=== PATIENT | female | born 1980 | race Asian ===

== ENCOUNTER 2016-09-08 16:33 | Emergency (ER) | payer OTHER ==
[~2016-09-08] VITALS: Ht 160 cm; Wt 61.3 kg
[2016-09-08 16:57] LABS: HEMATOCRIT 36.8 % (36.0-46.0); MCH 27.4 PG (29.0-34.0); MCHC 33.7 G/DL (30.0-36.0); MCV 81.2 FL (83-99); MEAN PLAT.VOLUME 9.2 uM^3 (9.5-12.4); PLATELET COUNT 295 K/uL (156-360); RBC DIS.WIDTH-CV 13.6 % (11.8-14.6); RBC DIS.WIDTH-SD 39.3 % (39-53); RED BLOOD COUNT 4.53 M/uL (3.80-5.20)
[2016-09-08] MEDS ORDERED: PRENATAL TABLE1 EAC3 PO (17:02)
[2016-09-08] MEDS ORDERED: ONDANSETRON HCL4 MG PO (17:02)
[2016-09-08 19:14] LABS: COLOR RED ((YELLOW)); GLUCOSE (STRIP) NEGATIVE; LEUKOCYTES MODERATE; PH, URINE 6.5 (5-8); PROTEIN (STRIP) 100
[2016-09-08 19:15] LABS: ADD MIUA? YES; BILIRUBIN SMALL; BLOOD LARGE; KETONES TRACE; UROBILINOGEN 0.2 MG/DL (0.2-1.0)
[2016-09-08 19:17] LABS: NITRITE NEGATIVE; RED BLOOD CELLS TNTC /HPF (0-5); UCUL ADDED? YES
[2016-09-08 20:14] VITALS: BP 136/80
== END 2016-09-08 20:15 | disposition home or self-care (01) ==
LOC: EME 16:33
DX: O20.0 Threatened abortion (principal); Z3A.10 10 weeks gestation of pregnancy
CPT/HCPCS: 76801; 81003; 84702; 85027; 86900; 86901; 87086; 99281; 99284

== ENCOUNTER 2017-02-15 12:54 | Inpatient (IN) | payer OTHER ==
[~2017-02-15] VITALS: Ht 160 cm; Wt 76.4 kg
[2017-02-15] VITALS (11 sets, daily range): BP systolic 109–140; BP diastolic 60–86
[~2017-02-15 12:54] MED LIST: ONDANSETRON HCL4 MG PO; PRENATAL TABLE1 EAC3 PO
[2017-02-15] MEDS ORDERED: MAKENA250 MG/11 IM (13:33)
[2017-02-15 14:35] LABS: ALKALINE PHOSPHATASE 131 IU/L (3-129); ANION GAP 8 MEQ/L (2-14); CHLORIDE 105 MEQ/L (99-109); EOSINOPHIL (%) 2.5 % (0-5); EOSINOPHIL COUNT 0.3 K/uL (0-0.3); GFR ESTIMATE (CALCULATED) > 59 mL/min/; GLUCOSE 72 mg/dL (70-99); HEMATOCRIT 38.1 % (36.0-46.0); IMMATURE GRANULOCYTE (%) 0.8 % (0.0-0.7); IMMATURE GRANULOCYTE COUNT 0.1 K/uL; INSTRUMENT ABS NEUTROPHIL CT 8.6 K/uL; LYMPHOCYTE COUNT 1.6 K/uL (1.0-2.8); MCV 84.1 FL (83-99); MEAN PLAT.VOLUME 10.1 uM^3 (9.5-12.4); MONOCYTE (%) 6.4 % (3-12); MONOCYTE COUNT 0.7 K/uL (0-0.8); NEUTROPHIL (%) 75.8 % (45-76); NEUTROPHIL COUNT 8.6 K/uL (1.8-6.4); PLATELET COUNT 244 K/uL (156-360); RBC DIS.WIDTH-CV 15.2 % (11.8-14.6); RBC DIS.WIDTH-SD 45.5 % (39-53); RED BLOOD COUNT 4.53 M/uL (3.80-5.20); SAMPLE HEMOLYSIS CHECK 0; SAMPLE ICTERIC CHECK 0; SAMPLE LIPEMIA CHECK 0; SODIUM 138 MEQ/L (136-147); TOTAL BILIRUBIN 0.3 MG/DL (0.0-1.0); UREA NITROGEN (BUN) 4 mg/dL (9-23); WHITE BLOOD COUNT 11.4 K/uL (4.1-10.2)
[2017-02-15 16:52] LABS: AMPHETAMINE NEGATIVE (500 ng/mL); BARBITURATES NEGATIVE (200 ng/mL); BENZODIAZEPINES NEGATIVE (150 ng/mL); COCAINE NEGATIVE (150 ng/mL); INTERNAL CONTROLS VALID? YES; METHADONE NEGATIVE (200 ng/mL); METHAMPHETAMINE NEGATIVE (500 ng/mL); OPIATES (MORPHINE) NEGATIVE (100 ng/mL); OXYCODONE NEGATIVE (100 ng/mL); PHENCYCLIDINE NEGATIVE (25 ng/mL); PROPOXYPHENE NEGATIVE (300 ng/mL); THC CANNABINOIDS NEGATIVE (50 ng/mL); TRICYCLIC ANTIDEPRESSANTS NEGATIVE (300 ng/mL)
[2017-02-15 19:43] LABS: BASE EXCESS -2.5 mEq/L (-3 to +3); BICARBONATE 24.2 mEq/L (22-26); CARBOXY HGB 0.9 % (0-5); METHEMOGLOBIN 2.1 % (0-1.5); PCO2 48 mm Hg (35-45); pH 7.31 (7.35-7.45)
[2017-02-15 19:44] LABS: PO2 < 28 mm Hg (80-100); SITE UMBILICAL CORD
[2017-02-15 19:45] LABS: COMMENTS - BLOOD GASES C+ VENOUS SAMPLE
[2017-02-16 07:47] VITALS: BP 126/70
[2017-02-16 07:49] LABS: HEMATOCRIT 32.9 % (36.0-46.0); MCH 26.2 PG (29.0-34.0); MCHC 31.3 G/DL (30.0-36.0); MCV 83.7 FL (83-99); MEAN PLAT.VOLUME 10.1 uM^3 (9.5-12.4); PLATELET COUNT 225 K/uL (156-360); RBC DIS.WIDTH-SD 45.6 % (39-53); RED BLOOD COUNT 3.93 M/uL (3.80-5.20); WHITE BLOOD COUNT 16.5 K/uL (4.1-10.2)
[2017-02-16 08:08] LABS: EOSINOPHIL (%) 0 % (0-5); IMMATURE GRANULOCYTE (%) 0.8 % (0.0-0.7); IMMATURE GRANULOCYTE COUNT 0.1 K/uL; INSTRUMENT ABS NEUTROPHIL CT 14.4 K/uL; LYMPHOCYTE COUNT 1.1 K/uL (1.0-2.8); MONOCYTE (%) 5.3 % (3-12); MONOCYTE COUNT 0.9 K/uL (0-0.8); NEUTROPHIL (%) 87.4 % (45-76); NEUTROPHIL COUNT 14.4 K/uL (1.8-6.4); PLAT.SUFFICIENCY ADEQUATE
[2017-02-16 11:51] VITALS: BP 107/64
[2017-02-16 15:57] VITALS: BP 121/78
[2017-02-17 19:00] VITALS: BP 124/86
[2017-02-17 23:00] VITALS: BP 125/74
[2017-02-18 03:00] VITALS: BP 134/81
[2017-02-18 19:15] VITALS: BP 141/87
[2017-02-18 22:54] VITALS: BP 133/84
[2017-02-19 03:00] VITALS: BP 139/81
[2017-02-19 07:39] VITALS: BP 119/66
[2017-02-19 10:34] VITALS: BP 133/84
[2017-02-19] MEDS ORDERED: IBUPROFEN800 MG PO (14:11)
[2017-02-19] MEDS ORDERED: OXYCODONE-APAP1 EACH PO (14:11)
== END 2017-02-19 14:50 | disposition home or self-care (01) | DRG 765 ==
LOC: LDRP-OP 12:54 → 2WEST 12:55 → LDRP-OP 05-07 16:25
PROVIDERS: Obstetrics & Gynecology
PROC: 10D00Z1 Extraction of Products of Conception, Low, Open Approach (ICD-10-PCS; principal; 2017-02-15)
DX: O60.14X0 Preterm labor third trimester with preterm delivery third trimester, not applicable or unspecified (principal); O22.43 Hemorrhoids in pregnancy, third trimester; O34.211 Maternal care for low transverse scar from previous cesarean delivery; Z3A.32 32 weeks gestation of pregnancy; Z37.0 Single live birth; O09.523 Supervision of elderly multigravida, third trimester; O32.1XX0 Maternal care for breech presentation, not applicable or unspecified; O99.02 Anemia complicating childbirth; D50.9 Iron deficiency anemia, unspecified
CPT/HCPCS: 36600; 76805; 80053; 82731; 82803; 85025; 86900; 86901; 87086; 87480; 87510; 87660; 88307; J0690; J0702; J1885; J2250; J2270; J2274; J3010; J3475; J7030